=== PATIENT | male | born 1995 | race Hispanic/Latino ===

== ENCOUNTER 2021-12-30 14:55 | Emergency (ER) | payer BC ==
[~2021-12-30] VITALS: Ht 172.7 cm; Wt 92.8 kg
[2021-12-30] MEDS ORDERED: PROVENTIL HFA6.7 GM INH (15:54)
[2021-12-30] MEDS ORDERED: PREDNISONE20 MG PO (15:57)
[2021-12-30] MEDS ORDERED: PREDNISONE 20 MG TAB ONE (15:59)
[2021-12-30] MEDS ORDERED: PREDNISONE 20 MG TAB PO ONE (16:00)
[2021-12-30] MEDS ORDERED: ALBUTEROL/IPRATROPIUM 3 ML NEB ONE (16:00)
[2021-12-30] MEDS ORDERED: ALBUTEROL/IPRATROPIUM 3 ML NEB NEB ONE (16:00)
== END 2021-12-30 16:17 | disposition home or self-care (01) ==
LOC: FSED 15:08
DX: J45.901 Unspecified asthma with (acute) exacerbation (principal); J06.9 Acute upper respiratory infection, unspecified
CPT/HCPCS: 99283; J7512